=== PATIENT | male | born 1955 | race American Indian/Alaskan Native ===

== ENCOUNTER 2022-06-19 06:27 | Inpatient (IN) | payer MEDICARE ==
--- NOTE | 2022-06-19 06:46 | Emergency Department Report ---
ED Neuro Deficit HPI - General Stated Complaint: LEFT ARM TRIMMERS Time Seen by Provider: 06/19/22 06:33 Source: patient, family, EMS Mode of arrival: Stretcher Limitations: Physical Limitation - History of Present Illness Initial Comments: This is a 66-year-old male with history of diabetes, end-stage renal disease, (dialysis dependent), hypertension, GI bleed, and stroke (3 years ago) who presents to the emergency department with left arm tremors, which he reported started 2 days ago. His family believes that he woke up with the symptoms, however, the patient is fully alert and oriented. Patient denies headache, any new focal weakness, chest pain, nor shortness of breath. Patient reports similar symptoms 3 years ago when he had a stroke. Patient denies any known a lleviating or aggravating factors. -: Sudden History of same: Yes - Related Data Home Medications: Home Medications Medication Instructions Recorded Confirmed Last Taken Metoprolol Xl 25 mg PO DAILY 04/06/16 04/06/16 Unknown Multivitamin/Iron/Folic Acid 1 PO DAILY 04/06/16 Unknown Pantoprazole [Protonix TAB] 40 mg PO QDAY 04/06/16 04/06/16 Unknown Sennosides [Senokot] 2 PO HS PRN 04/06/16 Unknown polyethylene glycoL 3350 [Miralax 17 gm PO DAILY PRN 04/06/16 04/06/16 Unknown 3350] Previous Rx's Medication Instructions Recorded Last Taken Type Acetaminophen [Acetaminophen TAB] 325 mg PO Q4H PRN #1 tablet 04/14/16 Unknown Rx Aspirin 81 mg PO QDAY #1 tablet 04/14/16 Unknown Rx Cinacalcet [Sensipar] 90 mg PO DAILY #1 tablet 04/14/16 Unknown Rx Lanthanum Carbonate [Fosrenol] 500 mg PO TIDWM #1 tab.chew 04/14/16 Unknown Rx Sevelamer Carbonate [Renvela] 800 mg PO AC #1 tablet 04/14/16 Unknown Rx oxyCODONE [roxiCODONE] 10 mg PO Q4HR PRN #1 tablet 04/14/16 Unknown Rx Allergies/Adverse Reactions: Allergies Allergy/AdvReac Type Severity Reaction Status Date / Time pollen extracts AdvReac Shortness Verified 04/06/16 19:37 of Breath ED Review of Systems ROS: Stated complaint: LEFT ARM TRIMMERS Other details as noted in HPI Constitutional: denies: chills, fever Eyes: denies: eye pain, eye discharge, vision change ENT: denies: ear pain, throat pain Respiratory: denies: cough, shortness of breath, wheezing Cardiovascular: denies: chest pain, palpitations Endocrine: no symptoms reported Gastrointestinal: denies: abdominal pain, nausea, diarrhea Genitourinary: denies: urgency, dysuria Musculoskeletal: denies: back pain, joint swelling, arthralgia Skin: denies: rash, lesions Neurological: other. denies: headache, weakness (Left upper extremity focal tremor, which is constant), numbness, paresthesias Psychiatric: denies: anxiety, depression Hematological/Lymphatic: denies: easy bleeding, easy bruising ED Past Medical Hx - Past Medical History Hx Hypertension: Yes Hx Congestive Heart Failure: No Hx Diabetes: Yes (PT AND BROTHER WITH DM) Hx Renal Disease: Yes Hx Asthma: No - Social History Smoking Status: Never Smoker - Medications Home Medications: Home Medications Medication Instructions Recorded Confirmed Last Taken Type Metoprolol Xl 25 mg PO DAILY 04/06/16 04/06/16 Unknown History Multivitamin/Iron/Folic Acid 1 PO DAILY 04/06/16 Unknown History Pantoprazole [Protonix TAB] 40 mg PO QDAY 04/06/16 04/06/16 Unknown History Sennosides [Senokot] 2 PO HS PRN 04/06/16 Unknown History polyethylene glycoL 3350 [Miralax 17 gm PO DAILY PRN 04/06/16 04/06/16 Unknown History 3350] Acetaminophen [Acetaminophen TAB] 325 mg PO Q4H PRN #1 tablet 04/14/16 Unknown Rx Aspirin 81 mg PO QDAY #1 tablet 04/14/16 Unknown Rx Cinacalcet [Sensipar] 90 mg PO DAILY #1 tablet 04/14/16 Unknown Rx Lanthanum Carbonate [Fosrenol] 500 mg PO TIDWM #1 tab.chew 04/14/16 Unknown Rx Sevelamer Carbonate [Renvela] 800 mg PO AC #1 tablet 04/14/16 Unknown Rx oxyCODONE [roxiCODONE] 10 mg PO Q4HR PRN #1 tablet 04/14/16 Unknown Rx ED Neuro Physical Exam - General General appearance: alert, in no apparent distress Suspected Stroke: Yes - Head Head exam: Present: atraumatic, normocephalic - Eye Eye exam: Present: normal appearance, PERRL, EOMI - Neck Neck exam: Present: normal inspection, full ROM - Respiratory Respiratory exam: Present: normal lung sounds bilaterally. Absent: respiratory distress, wheezes, rales, rhonchi - Cardiovascular Cardiovascular Exam: Present: regular rate, irregular rhythm. Absent: systolic murmur, diastolic murmur, rubs, gallop - GI/Abdominal GI/Abdominal exam: Present: soft, distended, normal bowel sounds. 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 Left upper extremity tremors which is constant). Absent: normal gait, abnormal gait, motor sensory deficit, reflexes normal - NIHSS Assessment Interval: Baseline 1a. Level of Consciousness: alert/keenly responsive 1b. LOC Questions: answers both correctly 1c. LOC Commands: performs tasks correctly 2. Best Gaze: normal 3. Visual: no visual loss 4. Facial Palsy: normal symmetrical movement 5b. Motor Arm Right: no drift 5a. Motor Arm Left: no drift (tremors) 6a. Motor Leg Left: no movement 6b. Motor Leg Right: no movement 7. Limb Ataxia: present 1 limb 8. Sensory: normal 9. Best Language: no aphasia 10. Dysarthria: normal 11. Extinction/Inattention: no abnormality Total Score: 9 Stroke Severity: Moderate Stroke - Psychiatric Psychiatric exam: Present: normal affect, normal mood - Skin Skin exam: Present: warm, dry, intact, normal color. Absent: rash ED Course Vital Signs 06/19/22 06/19/22 06/19/22 06:29 08:04 11:00 Temperature 98.4 F 97.6 F Pulse Rate 86 82 65 Respiratory 18 18 18 Rate Blood Pressure 130/60 Blood Pressure 112/54 130/75 [Right] O2 Sat by Pulse 100 97 96 Oximetry 06/19/22 12:48 Temperature Pulse Rate 75 Respiratory 17 Rate Blood Pressure Blood Pressure 126/45 [Right] O2 Sat by Pulse 100 Oximetry - Reevaluation(s) Reevaluation #1: 06/19/22 07:43 This is a 66-year-old male who has history of stroke which has left him with left-sided tremors, intermittently. Patient has been having worsening left upper extremity tremors for the last 2 days. The seizure-like presentation and the fact that it has been 2 days makes him not a tPA candidate, nor a interventional candidate. I spoke with neurology who agreed that the patient was not a tPA candidate, but recommended an MRI and possibly dialysis if there were metabolic derangements. He does not believe benzodiazepines will help with the symptoms. Reevaluation #2: 06/19/22 08:06 Patient reports that he does take a medicine that begins with a "K", which he believes is Keppra for seizures. Reevaluation #3: 06/19/22 13:07 I spoke with [facility] (Dr. Herring) who gave permission for the patient to be admitted here for further work-up. She could not find the patient's family members phone number, but was able to confirm that the patient had been on Keppra some years ago, but that has been discontinued. Patient's last troponin went in the [facility] system was not as high as it is, here today. I also spoke to the patient's Maria De Jesus who can be reached at [phone]. She understands the diagnosis, reports that the patient has not been diagnosed with dementia and, but does have waxing and waning confusion. - Lab Data Result diagrams: 06/19/22 07:18 06/19/22 07:18 Lab Results 06/19/22 06/19/22 06/19/22 Range/Units 07:18 07:18 07:18 WBC 3.9 L (4.5-11.0) K/mm3 RBC 3.93 (3.65-5.03) M/mm3 Hgb 11.5 L (11.8-15.2) gm/dl Hct 35.4 L (35.5-45.6) % MCV 90 (84-94) fl MCH 29 (28-32) pg MCHC 32 (32-34) % RDW 17.8 H (13.2-15.2) % Plt Count 172 (140-440) K/mm3 Lymph % (Auto) 18.1 (13.4-35.0) % [place] % (Auto) 7.4 H (0.0-7.3) % Eos % (Auto) 2.3 (0.0-4.3) % Baso % (Auto) 0.7 (0.0-1.8) % Lymph # (Auto) 0.7 L (1.2-5.4) K/mm3 [place] # (Auto) 0.3 (0.0-0.8) K/mm3 Eos # (Auto) 0.1 (0.0-0.4) K/mm3 Baso # (Auto) 0.0 (0.0-0.1) K/mm3 Seg Neutrophils % 71.5 H (40.0-70.0) % Seg Neutrophils # 2.8 (1.8-7.7) K/mm3 PT 23.5 H (12.2-14.9) Sec. INR 1.79 H (0.87-1.13) APTT 44.9 H (24.2-36.6) Sec. Thrombin Time 19.2 (15.1-19.6) Sec. Sodium (137-145) mmol/L Potassium (3.6-5.0) mmol/L Chloride (98-107) mmol/L Carbon Dioxide (22-30) mmol/L Anion Gap mmol/L BUN (9-20) mg/dL Creatinine (0.8-1.3) mg/dL Estimated GFR ml/min BUN/Creatinine Ratio % Glucose (75-100) mg/dL Calcium (8.4-10.2) mg/dL Total Bilirubin (0.1-1.2) mg/dL AST (5-40) units/L ALT (7-56) units/L Alkaline Phosphatase (35-129) units/L Total Creatine Kinase 50 L (55-170) units/L CK-MB (CK-2) 4.3 H (0.0-4.0) ng/mL CK-MB (CK-2) Rel Index 8.6 H (0-4) Troponin T 0.565 H* (0.00-0.029) ng/mL Total Protein (6.3-8.2) g/dL Albumin (3.9-5) g/dL Albumin/Globulin Ratio % Triglycerides 86 (2-149) mg/dL Cholesterol 82 (50-199) mg/dL LDL Cholesterol Direct 31 L (50-130) mg/dL HDL Cholesterol 28 L (40-59) mg/dL Cholesterol/HDL Ratio 2.92 % // Range/Units 07:18 WBC (4.5-11.0) K/mm3 RBC (3.65-5.03) M/mm3 Hgb (11.8-15.2) gm/dl Hct (35.5-45.6) % MCV (84-94) fl MCH (28-32) pg MCHC (32-34) % RDW (13.2-15.2) % Plt Count (140-440) K/mm3 Lymph % (Auto) (13.4-35.0) % [place] % (Auto) (0.0-7.3) % Eos % (Auto) (0.0-4.3) % Baso % (Auto) (0.0-1.8) % Lymph # (Auto) (1.2-5.4) K/mm3 [place] # (Auto) (0.0-0.8) K/mm3 Eos # (Auto) (0.0-0.4) K/mm3 Baso # (Auto) (0.0-0.1) K/mm3 Seg Neutrophils % (40.0-70.0) % Seg Neutrophils # (1.8-7.7) K/mm3 PT (12.2-14.9) Sec. INR (0.87-1.13) APTT (24.2-36.6) Sec. Thrombin Time (15.1-19.6) Sec. Sodium 136 L (137-145) mmol/L Potassium 3.8 (3.6-5.0) mmol/L Chloride 93.6 L (98-107) mmol/L Carbon Dioxide 29 (22-30) mmol/L Anion Gap 17 mmol/L BUN 23 H (9-20) mg/dL Creatinine 7.8 H (0.8-1.3) mg/dL Estimated GFR 8 ml/min BUN/Creatinine Ratio 3 % Glucose 83 (75-100) mg/dL Calcium 8.4 (8.4-10.2) mg/dL Total Bilirubin 1.00 (0.1-1.2) mg/dL AST 19 (5-40) units/L ALT < 5 L (7-56) units/L Alkaline Phosphatase 134 H (35-129) units/L Total Creatine Kinase (55-170) units/L CK-MB (CK-2) (0.0-4.0) ng/mL CK-MB (CK-2) Rel Index (0-4) Troponin T (0.00-0.029) ng/mL Total Protein 6.2 L (6.3-8.2) g/dL Albumin 2.6 L (3.9-5) g/dL Albumin/Globulin Ratio 0.7 % Triglycerides (2-149) mg/dL Cholesterol (50-199) mg/dL LDL Cholesterol Direct (50-130) mg/dL HDL Cholesterol (40-59) mg/dL Cholesterol/HDL Ratio % - Differential Diagnosis Stroke, TIA, seizure, intracranial hemorrhage, malignancy - Thrombolytic Inclusion/Exclusion Thrombolytic Exclusion Criteria: Symptom Onset > 3 Hours Thrombolytic Contraindications: Seizure at Onset Critical care attestation.: If time is entered above; I have spent that time in minutes in the direct care of this critically ill patient, excluding procedure time. ED Disposition Clinical Impression: Tremor observed on examination, Stroke determined by clinical assessment Disposition: 09 ADMITTED INPATIENT Is pt being admited?: Yes Condition: Fair
--- NOTE | 2022-06-19 06:56 | Emergency Department Report ---
Blank Doc - Documentation Documentation: [facility] Consult Note # Demographics Consult Type: Acute Stroke Level 1 (0-4.5 hrs) Patient Location: Emergency Room First Name: Demetrice Last Name: Magui Date of : 1955 Age: 66 Gender: Male Facility: [facility] Time of Initial Page ( Time): 06/19/2022, 06:35 Time of Return Call ( Time): 06/19/2022, 06:35 # HPI History: 66 yo man hx of prior stroke , seizure disorder on keppra with residual left arm weakness, bilateral lower ext amputee woke today with new onset arm tremors, patient notes that the symptoms have been going on for 2 days. # Scores Time of exam and NIHSS ( Time): 06/19/2022, 06:52 Level of Consciousness 1a: [0] = Alert; keenly responsive LOC Questions 1b: [0] = Answers both questions correctly LOC Commands 1c: [0] = Performs both tasks correctly Best Gaze 2: [0] = Normal Visual 3: [0] = No visual loss Facial Palsy 4: [0] = Normal symmetrical movements Motor Arm Left 5a: [1] = Drift Motor Arm Right 5b: [0] = No drift Motor Leg Left 6a: [0] UN = Amputation or joint fusion Motor Leg Right 6b: [0] UN = Amputation or joint fusion Limb Ataxia 7: [0] = Absent Sensory 8: [0] = Normal Best Language 9: [0] = No aphasia Dysarthria 10: [0] = Normal Extinction and Inattention 11: [0] = No abnormality NIHSS Total: 1 # Exam Additional Neurologic Exam: tremor, myoclonic appearing drops # Data Head CT: no bleed chronic appearing strokes noted # Assessment Impression: left arm tremor, possible negative (drop) myoclonus, which may be suggestive of metabolic derangement. new stroke is also possible. low suspicion of seizures at this time. # Plan Thrombolytic/Intervention: NOT IV Thrombolysis or IA Intervention candidate Thrombolytic Exclusion: > 4.5 hours Intraarterial Exclusion: cta read is pending Target Blood Pressure: SBP < 180 Labs: CBC comprehensive metabolic panel lipid panel troponin TSH urine drug screen ua DVT Prophylaxis: heparin 5000 units subcutaneously q 12 hours Other: consult on-site neurology service for full work-up and evaluation recommendations If patient has any neurological deterioration please call me back immediately I have discussed my recommendations with the referring provider Additional Recommendations: metabolic, infectious work up patient may need dialysis today MRI brain wo contrast Disposition: admit # Logistics Telemedicine: Interactive 2 way audio and visual telecommunication technology was utilized during this visit
--- NOTE | 2022-06-19 07:03 | Cat Scan Report ---
CT HEAD WITHOUT CONTRAST INDICATION / CLINICAL INFORMATION: CODE STROKE, LEFT SIDE WEAKNESS, [id number], [id number] . TECHNIQUE: All CT scans at this location are performed using CT dose reduction for ALARA by means of automated exposure control. COMPARISON: None available. FINDINGS: BRAIN PARENCHYMA: Large area of encephalomalacia involving the right frontoparietal region, compatibl e with remote infarct. Additional area of encephalomalacia involving the right parieto-occipital carly on. No definite recent infarct. No acute intracranial hemorrhage. No mass effect or midline shift. Ch ronic small vessel ischemic changes. VENTRICULAR SYSTEM/EXTRA-AXIAL SPACES: Age-related cerebral atrophy. No extra-axial fluid collection. ORBITS: Normal as visualized. SKELETAL SYSTEM/SOFT TISSUES: Normal bones and soft tissues. PARANASAL SINUSES/MASTOID AIR CELLS: Complete opacification of the left maxillary sinus with mucosal thickening of the ethmoid air cells and left frontal sinus. ADDITIONAL FINDINGS: None. IMPRESSION: 1. No evidence of acute intracranial abnormality. 2. Remote infarcts of the right cerebral hemisphere. 3. Left maxillary sinusitis. CODE STROKE Time of Communication (CERTIFIED PROFESSIONAL ERGONOMIST/CDT): 06/19/2022 5:58 AM. Licensed Practitioner Receiving Report: LUPILLO MULLIGAN MD Signer Name: Dave Muhammad MD Signed: 06/19/2022 6:58 AM Workstation Name: [id number]
[2022-06-19 07:43] LABS: Basophils % (Auto) 0.7 % (0.0-1.8); Eosinophils # (Auto) 0.1 K/mm3 (0.0-0.4); Eosinophils % (Auto) 2.3 % (0.0-4.3); Hematocrit 35.4 % (35.5-45.6); Hemoglobin 11.5 gm/dl (11.8-15.2); Lymphocytes # (Auto) 0.7 K/mm3 (1.2-5.4); Lymphocytes % (Auto) 18.1 % (13.4-35.0); Mean Corpuscular HGB Conc 32 % (32-34); Mean Corpuscular Volume 90 fl (84-94); Monocytes # (Auto) 0.3 K/mm3 (0.0-0.8); Monocytes % (Auto) 7.4 % (0.0-7.3); Platelet Count 172 K/mm3 (140-440); Red Blood Count 3.93 M/mm3 (3.65-5.03); Red Cell Distribution Width 17.8 % (13.2-15.2)
[2022-06-19] MEDS ORDERED: diazePAM 5 MG TAB PO ONE (08:04)
[2022-06-19 08:06] LABS: Creatine Kinase MB 4.3 ng/mL (0.0-4.0)
[2022-06-19 08:07] LABS: Albumin 2.6 g/dL (3.9-5); Blood Urea Nitrogen 23 mg/dL (9-20); Calcium 8.4 mg/dL (8.4-10.2); Hemolysis Index 1
[2022-06-19 08:17] LABS: Alanine Aminotransferase < 5 units/L (7-56); BUN/Creatinine Ratio 3
[2022-06-19 08:29] LABS: Chol/HDL Ratio 2.92 %
[2022-06-19 08:49] LABS: INR 1.79 (0.87-1.13)
[2022-06-19 09:07] LABS: Partial Thromboplastin Time 44.9 Sec. (24.2-36.6); Thrombin Time 19.2 Sec. (15.1-19.6)
[2022-06-19] MEDS ORDERED: MORPHINE 2 MG/1 ML INJ IV ONE (13:20)
--- NOTE | 2022-06-19 16:52 | History and Physical Report ---
History of Present Illness Date of examination: 06/19/22 Date of admission: 06/19/2022 Chief complaint: Black pigmentation of both hands for more than 1 month. History of present illness: Patient is a poor historian. This is a 66-year-old male with history of diabetes, end-stage renal disease, (dialysis dependent), hypertension, GI bleed, and stroke (3 years ago) who presents to the emergency department with left arm tremors, which he reported started 2 days ago. Patient also complains of darkening of both hands for about 2 to 3 months. Patient was admitted to [place] recently and amputation of left index finger performed. Patient was not letting me open the bandage--hence I could not visualize the left hand properly. - Past Medical History --Hypertension: Yes --Diabetes: Yes (PT AND BROTHER WITH DM) --Renal Disease: Yes past surgical history -- bilateral below-knee amputation, -- left hand index finger amputation, --left upper extremity AV fistula - Social History --Smoking Status: Never Smoker - Medications Home Medications: Home Medications Medication Instructions Recorded Confirmed Last Taken Type Metoprolol Xl 25 mg PO DAILY 04/06/16 04/06/16 Unknown History Multivitamin/Iron/Folic Acid 1 PO DAILY 04/06/16 Unknown History Pantoprazole [Protonix TAB] 40 mg PO QDAY 04/06/16 04/06/16 Unknown History Sennosides [Senokot] 2 PO HS PRN 04/06/16 Unknown History polyethylene glycoL 3350 [Miralax 17 gm PO DAILY PRN 04/06/16 04/06/16 Unknown History 3350] Acetaminophen [Acetaminophen TAB] 325 mg PO Q4H PRN #1 tablet 04/14/16 Unknown Rx Aspirin 81 mg PO QDAY #1 tablet 04/14/16 Unknown Rx Cinacalcet [Sensipar] 90 mg PO DAILY #1 tablet 04/14/16 Unknown Rx Lanthanum Carbonate [Fosrenol] 500 mg PO TIDWM #1 tab.chew 04/14/16 Unknown Rx Sevelamer Carbonate [Renvela] 800 mg PO AC #1 tablet 04/14/16 Unknown Rx oxyCODONE [roxiCODONE] 10 mg PO Q4HR PRN #1 tablet 04/14/16 Unknown Rx Review of Systems ROS: Stated complaint: Darkening of both forearms and hands for 2 to 3 months Other details as noted in HPI Constitutional: denies: chills, fever Eyes: denies: eye pain, eye discharge, vision change ENT: denies: ear pain, throat pain Respiratory: denies: cough, shortness of breath, wheezing Cardiovascular: denies: chest pain, palpitations Endocrine: no symptoms reported Gastrointestinal: denies: abdominal pain, nausea, diarrhea Genitourinary: denies: urgency, dysuria Musculoskeletal: denies: back pain, joint swelling, arthralgia Skin: denies: rash, lesions Neurological: other. denies: headache, weakness (Left upper extremity focal tremor, which is constant), numbness, paresthesias Psychiatric: denies: anxiety, depression Hematological/Lymphatic: denies: easy bleeding, easy bruising Medications and Allergies Allergies Allergy/AdvReac Type Severity Reaction Status Date / Time pollen extracts AdvReac Shortness Verified 04/06/16 19:37 of Breath Home Medications Medication Instructions Recorded Confirmed Last Taken Type Metoprolol Xl 25 mg PO DAILY 04/06/16 04/06/16 Unknown History Multivitamin/Iron/Folic Acid 1 PO DAILY 04/06/16 Unknown History Pantoprazole [Protonix TAB] 40 mg PO QDAY 04/06/16 04/06/16 Unknown History Sennosides [Senokot] 2 PO HS PRN 04/06/16 Unknown History polyethylene glycoL 3350 [Miralax 17 gm PO DAILY PRN 04/06/16 04/06/16 Unknown History 3350] Acetaminophen [Acetaminophen TAB] 325 mg PO Q4H PRN #1 tablet 04/14/16 Unknown Rx Aspirin 81 mg PO QDAY #1 tablet 04/14/16 Unknown Rx Cinacalcet [Sensipar] 90 mg PO DAILY #1 tablet 04/14/16 Unknown Rx Lanthanum Carbonate [Fosrenol] 500 mg PO TIDWM #1 tab.chew 04/14/16 Unknown Rx Sevelamer Carbonate [Renvela] 800 mg PO AC #1 tablet 04/14/16 Unknown Rx oxyCODONE [roxiCODONE] 10 mg PO Q4HR PRN #1 tablet 04/14/16 Unknown Rx Exam - Constitutional Vitals: Temp Pulse Resp BP Pulse Ox 97.6 F 76 15 96/43 97 06/19/22 08:04 06/19/22 16:18 08/08/22 16:18 06/19/22 16:18 06/19/22 16:18 General appearance: Present: mild distress, well-nourished - EENT Eyes: Present: PERRL ENT: hearing intact, clear oral mucosa - Neck Neck: Present: supple, normal ROM - Respiratory Respiratory effort: normal Respiratory: bilateral: CTA - Cardiovascular Heart rate: 78 Rhythm: regular Heart Sounds: Present: S1 & S2. Absent: rub, click - Extremities Extremities: pulses symmetrical, No edema, abnormal (Gangrenous appearance of both forearms and both hands) Peripheral Pulses: within normal limits - Abdominal General gastrointestinal: Present: soft, non-tender, non-distended, normal bowel sounds Male genitourinary: Present: normal - Integumentary Integumentary: Present: clear, warm, dry - Musculoskeletal Musculoskeletal: gait normal, strength equal bilaterally - Psychiatric Psychiatric: appropriate mood/affect, intact judgment & insight - Neurologic Neurologic: CNII-XII intact, moves all extremities - Allied Health Allied health notes reviewed: nursing, case management HEART Score - HEART Score Troponin: Troponin T 0.565 ng/mL (0.00-0.029) H* 06/19/22 07:18 Results - Labs CBC & Chem 7: 06/19/22 07:18 06/19/22 07:18 Labs: Laboratory Last Values WBC 3.9 K/mm3 (4.5-11.0) L 06/19/22 07:18 RBC 3.93 M/mm3 (3.65-5.03) 06/19/22 07:18 Hgb 11.5 gm/dl (11.8-15.2) L 06/19/22 07:18 Hct 35.4 % (35.5-45.6) L 06/19/22 07:18 MCV 90 fl (84-94) 06/19/22 07:18 MCH 29 pg (28-32) 06/19/22 07:18 MCHC 32 % (32-34) 06/19/22 07:18 RDW 17.8 % (13.2-15.2) H 06/19/22 07:18 Plt Count 172 K/mm3 (140-440) 06/19/22 07:18 Lymph % (Auto) 18.1 % (13.4-35.0) 06/19/22 07:18 [place] % (Auto) 7.4 % (0.0-7.3) H 06/19/22 07:18 Eos % (Auto) 2.3 % (0.0-4.3) 06/19/22 07:18 Baso % (Auto) 0.7 % (0.0-1.8) 06/19/22 07:18 Lymph # (Auto) 0.7 K/mm3 (1.2-5.4) L 06/19/22 07:18 [place] # (Auto) 0.3 K/mm3 (0.0-0.8) 06/19/22 07:18 Eos # (Auto) 0.1 K/mm3 (0.0-0.4) 06/19/22 07:18 Baso # (Auto) 0.0 K/mm3 (0.0-0.1) 06/19/22 07:18 Seg Neutrophils % 71.5 % (40.0-70.0) H 06/19/22 07:18 Seg Neutrophils # 2.8 K/mm3 (1.8-7.7) 06/19/22 07:18 PT 23.5 Sec. (12.2-14.9) H 06/19/22 07:18 INR 1.79 (0.87-1.13) H 06/19/22 07:18 APTT 44.9 Sec. (24.2-36.6) H 06/19/22 07:18 Thrombin Time 19.2 Sec. (15.1-19.6) 06/19/22 07:18 Sodium 136 mmol/L (137-145) L 06/19/22 07:18 Potassium 3.8 mmol/L (3.6-5.0) 06/19/22 07:18 Chloride 93.6 mmol/L (98-107) L 06/19/22 07:18 Carbon Dioxide 29 mmol/L (22-30) 06/19/22 07:18 Anion Gap 17 mmol/L 06/19/22 07:18 BUN 23 mg/dL (9-20) H 06/19/22 07:18 Creatinine 7.8 mg/dL (0.8-1.3) H 06/19/22 07:18 Estimated GFR 8 ml/min 06/19/22 07:18 BUN/Creatinine Ratio 3 % 06/19/22 07:18 Glucose 83 mg/dL (75-100) 06/19/22 07:18 POC Glucose 61 mg/dL (70-105) L 06/19/22 13:14 Calcium 8.4 mg/dL (8.4-10.2) 06/19/22 07:18 Total Bilirubin 1.00 mg/dL (0.1-1.2) 06/19/22 07:18 AST 19 units/L (5-40) 06/19/22 07:18 ALT < 5 units/L (7-56) L 06/19/22 07:18 Alkaline Phosphatase 134 units/L (35-129) H 06/19/22 07:18 Total Creatine Kinase 50 units/L (55-170) L 06/19/22 07:18 CK-MB (CK-2) 4.3 ng/mL (0.0-4.0) H 06/19/22 07:18 CK-MB (CK-2) Rel Index 8.6 (0-4) H 06/19/22 07:18 Troponin T 0.565 ng/mL (0.00-0.029) H* 06/19/22 07:18 Total Protein 6.2 g/dL (6.3-8.2) L 06/19/22 07:18 Albumin 2.6 g/dL (3.9-5) L 06/19/22 07:18 Albumin/Globulin Ratio 0.7 % 06/19/22 07:18 Triglycerides 86 mg/dL (2-149) 06/19/22 07:18 Cholesterol 82 mg/dL (50-199) 06/19/22 07:18 LDL Cholesterol Direct 31 mg/dL (50-130) L 06/19/22 07:18 HDL Cholesterol 28 mg/dL (40-59) L 06/19/22 07:18 Cholesterol/HDL Ratio 2.92 % 06/19/22 07:18 Short CBC 06/19/22 Range/Units 07:18 WBC 3.9 L (4.5-11.0) K/mm3 Hgb 11.5 L (11.8-15.2) gm/dl Hct 35.4 L (35.5-45.6) % Plt Count 172 (140-440) K/mm3 BMP 06/19/22 07:18 Sodium 136 L Potassium 3.8 Chloride 93.6 L Carbon Dioxide 29 BUN 23 H Creatinine 7.8 H Glucose 83 Calcium 8.4 Cardiac Enzymes 06/19/22 Range/Units 07:18 Total Creatine Kinase 50 L (55-170) units/L CK-MB (CK-2) 4.3 H (0.0-4.0) ng/mL Troponin T 0.565 H* (0.00-0.029) ng/mL Liver Function 06/19/22 Range/Units 07:18 Total Bilirubin 1.00 (0.1-1.2) mg/dL AST 19 (5-40) units/L ALT < 5 L (7-56) units/L Alkaline Phosphatase 134 H (35-129) units/L Albumin 2.6 L (3.9-5) g/dL - Imaging and Cardiology CT Scan - head: report reviewed (No acute findings) Assessment and Plan Advance Directives: Yes (Full code) VTE prophylaxis?: Chemical Plan of care discussed with patient/family: Yes - Patient Problems (1) Gangrene Current Visit: No Status: Acute Plan to address problem: Patient has gangrene of both forearms and hands Vascular surgery consult Patient is thinking about hospice IV antibiotics initiated (2) End stage renal disease on dialysis Current Visit: Yes Status: Chronic Plan to address problem: Continue hemodialysis as per schedule Nephrology consulted (3) Hypertension Current Visit: Yes Status: Chronic Qualifiers: Hypertension type: primary hypertension Qualified Code(s): I10 - Essential (primary) hypertension Plan to address problem: Continue antihypertensives and adjust medications as necessary (4) T2DM (type 2 diabetes mellitus) Current Visit: Yes Status: Chronic Qualifiers: 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 Plan to address problem: Coverage and check A1c (5) Below knee amputation status Current Visit: No Status: Chronic Plan to address problem: Bilateral below-knee amputation Supportive care (6) Hyponatremia Current Visit: Yes Status: Acute Plan to address problem: Mild Should correct with increased ultrafiltration (7) Elevated troponin Current Visit: Yes Status: Chronic Plan to address problem: Troponin leak Repeat troponin level (8) DVT prophylaxis Current Visit: Yes Status: Acute Plan to address problem: On heparin and GI prophylaxis (9) Advance care planning Current Visit: Yes Status: Acute Plan to address problem: Disease education conducted, care plan discussed, patient diagnosis discussed then. Prognosis discussed. Patient acknowledges understanding of care plan. +30 minutes. Patient is thinking about hospice.
[2022-06-19] MEDS ORDERED: oxyCODONE 5 MG TAB PO PRN (17:00)
[2022-06-19] MEDS ORDERED: POLYETHYLENE GLYCOL 3350 17 GM POWDER PO PRN (17:00)
[2022-06-19] MEDS ORDERED: ACETAMINOPHEN 325 MG TAB PO PRN ×2 (17:00→17:02)
[2022-06-19] MEDS ORDERED: ONDANSETRON 4 MG/2 ML INJ IV PRN (17:02)
[2022-06-19] MEDS ORDERED: oxyCODONE /ACETAMINOPHEN 5-325MG TAB PO PRN (17:02)
[2022-06-19] MEDS ORDERED: METOPROLOL 25 MG PO SCH (17:15)
[2022-06-19] MEDS: LANTHANUM CARBONATE 500 MG TAB PO SCH (18:17)
[2022-06-19] MEDS: METOPROLOL SUCCINATE XL 25 MG TAB PO SCH (18:17)
[2022-06-19] MEDS: CINACALCET 30 MG TAB PO SCH (18:17)
[2022-06-19] MEDS: MORPHINE 2 MG/1 ML INJ IV PRN (21:04)
[2022-06-20 07:12] LABS: Basophils # (Auto) 0.1 K/mm3 (0.0-0.1); Basophils % (Auto) 2.2 % (0.0-1.8); Eosinophils # (Auto) 0.1 K/mm3 (0.0-0.4); Eosinophils % (Auto) 3.5 % (0.0-4.3); Hematocrit 36.8 % (35.5-45.6); Lymphocytes # (Auto) 0.9 K/mm3 (1.2-5.4); Lymphocytes % (Auto) 24.1 % (13.4-35.0); Mean Corpuscular HGB Conc 33 % (32-34); Mean Corpuscular Volume 90 fl (84-94); Monocytes # (Auto) 0.3 K/mm3 (0.0-0.8); Monocytes % (Auto) 7.6 % (0.0-7.3); Platelet Count 171 K/mm3 (140-440); Red Blood Count 4.08 M/mm3 (3.65-5.03); Red Cell Distribution Width 18.3 % (13.2-15.2)
[2022-06-20 07:35] LABS: Albumin 2.6 g/dL (3.9-5); Blood Urea Nitrogen 28 mg/dL (9-20); Calcium 8.1 mg/dL (8.4-10.2); Hemolysis Index 3
[2022-06-20 07:39] LABS: Hepatitis B Surface Antigen Non-Reactive (Negative); Hepatitis C Virus Antibody Non-Reactive (NonReactive)
[2022-06-20 07:42] LABS: Alanine Aminotransferase < 5 units/L (7-56); BUN/Creatinine Ratio 3
[2022-06-20] MEDS ORDERED: VANCOMYCIN PHARMACY TO DOSE IV SCH (08:00)
[2022-06-20] MEDS ORDERED: AMPICILLIN/SULBACTA 1.5GM/50ML 1.5 GM/50 ML BAG IV SCH (08:00)
[2022-06-20] MEDS: INSULIN LISPRO 100 UNIT/ML SUB-Q SCH ×4 (08:03→22:29)
[2022-06-20] MEDS ORDERED: VANCOMYCIN 1,500 MG in SODIUM CHLORIDE 0.9% 500 ML 500 ML IV ONE (08:30)
--- NOTE | 2022-06-20 08:50 | Consultation ---
History of Present Illness - Reason for Consult Consult date: 06/20/22 b/l hand gangrene Requesting physician: MERRILL TORRES - History of Present Illness The patient is a 66-year-old male with diabetes, ESRD on HD, hypertension, GI bleed, CVA, peripheral vascular disease, prior bilateral lower extremity BKA, recent left hand index finger amputation came to the hospital with complaints of pain in his right hand fingers. They have been getting dark and painful for the last 1 to 2 months. He has been hospitalized due to concerns for gangrenous changes. Otherwise afebrile. Labs without leukocytosis. ID was consulted for antibiotic management. Review of Systems: General: no fevers,chills or rigors HEENT: no new visual disturbance Respiratory: No cough, sputum, hemoptysis or shortness of breath Cardiovascular: No chest pain, syncope Gastrointestinal: No nausea, vomiting or diarrhea Genitourinary: No dysuria or hematuria Musculoskeletal: No new or worsening neck pain or back pain. Painful hands. Neurologic: No headaches, seizures Hematologic: No easy bruising or bleeding Endocrine: No night sweats or acute weight loss Skin: negative for rash, jaundice Psychiatric: No suicidal or homicidal ideation Medications and Allergies Allergies Allergy/AdvReac Type Severity Reaction Status Date / Time pollen extracts AdvReac Shortness Verified 04/06/16 19:37 of Breath Home Medications Medication Instructions Recorded Confirmed Last Taken Type Metoprolol Xl 25 mg PO DAILY 04/06/16 04/06/16 Unknown History Multivitamin/Iron/Folic Acid 1 PO DAILY 04/06/16 Unknown History Pantoprazole [Protonix TAB] 40 mg PO QDAY 04/06/16 04/06/16 Unknown History Sennosides [Senokot] 2 PO HS PRN 04/06/16 Unknown History polyethylene glycoL 3350 [Miralax 17 gm PO DAILY PRN 04/06/16 04/06/16 Unknown History 3350] Acetaminophen [Acetaminophen TAB] 325 mg PO Q4H PRN #1 tablet 04/14/16 Unknown Rx Aspirin 81 mg PO QDAY #1 tablet 04/14/16 Unknown Rx Cinacalcet [Sensipar] 90 mg PO DAILY #1 tablet 04/14/16 Unknown Rx Lanthanum Carbonate [Fosrenol] 500 mg PO TIDWM #1 tab.chew 04/14/16 Unknown Rx Sevelamer Carbonate [Renvela] 800 mg PO AC #1 tablet 04/14/16 Unknown Rx oxyCODONE [roxiCODONE] 10 mg PO Q4HR PRN #1 tablet 04/14/16 Unknown Rx Active Meds: Active Medications Acetaminophen (Acetaminophen 325 Mg Tab) 650 mg PO Q4H PRN PRN Reason: Pain MILD(1-3)/Fever >100.5/[place] Cinacalcet (Cinacalcet 30 Mg Tab) 90 mg PO DAILY [facility] Last Admin: 06/19/22 18:17 Dose: 90 mg Ampicillin Sodium/Sulbactam Sodium (Unasyn/Ns 3 Gm/100 Ml) 3 gm in 100 mls @ 200 mls/hr IV QPM [facility] Vancomycin HCl 1,500 mg/ (Sodium Chloride) 530 mls @ 333.333 mls/hr IV ONCE ONE Stop: 06/20/22 10:05 Insulin Human Lispro (Insulin Lispro 100 Unit/Ml) 0 unit SUB-Q ACHS [facility]; Protocol Lanthanum Carbonate (Lanthanum Carbonate 500 Mg Tab) 500 mg PO TIDWM [facility] Last Admin: 06/19/22 18:17 Dose: 500 mg Metoprolol Succinate (Metoprolol Succinate Xl 25 Mg Tab) 25 mg PO QDAY [facility] Last Admin: 06/19/22 18:17 Dose: 25 mg Morphine Sulfate (Morphine 2 Mg/1 Ml Inj) 2 mg IV Q4H PRN PRN Reason: Pain, Moderate (4-6) Last Admin: 06/19/22 21:04 Dose: 2 mg Ondansetron HCl (Ondansetron 4 Mg/2 Ml Inj) 4 mg IV Q8H PRN PRN Reason: Nausea And Vomiting Oxycodone HCl (Oxycodone 5 Mg Tab) 5 mg PO Q6H PRN PRN Reason: Pain, Moderate (4-6) Pantoprazole Sodium (Pantoprazole 40 Mg Tab) 40 mg PO QDAY [facility] Polyethylene Glycol (Polyethylene Glycol 3350 17 Gm Powder) 17 gm PO DAILY PRN PRN Reason: Constipation Sevelamer Carbonate (Sevelamer Carbonate 800 Mg Tab) 800 mg PO AC [facility] Sodium Chloride (Sodium Chloride 0.9% 10 Ml Flush Syringe) 10 ml IV BID [facility] Last Admin: 06/20/22 00:02 Dose: 10 ml Sodium Chloride (Sodium Chloride 0.9% 10 Ml Flush Syringe) 10 ml IV PRN PRN PRN Reason: LINE FLUSH Physical Examination - Physical Exam Narrative exam: Physical Exam: Constitutional: Alert, cooperative. No acute distress Head, Ears, Nose: Normocephalic, atraumatic. External ears, nose normal Eyes: Conjunctivae/corneas clear. No icterus. No ptosis. Neck: Supple, no meningeal signs Cardiovascular: S1, S2 + Respiratory: Good air entry, clear to auscultation bilaterally GI: Soft, non-tender; bowel sounds normal. No peritoneal signs Musculoskeletal: Bilateral BKA. Right hand fingers with hyperpigmentation, tender to touch. Also cool to touch. Left hand dressing present Skin: No rash or abscess Hem/Lymphatic: No palpable cervical or supraclavicular nodes. No lymphangitis Psych: Mood ok. Affect normal Neurological: Awake, alert, oriented. No gross abnormality - Constitutional Vitals: Vital Signs Temp Pulse Resp BP Pulse Ox 97.6 F 77 16 132/70 98 06/19/22 08:04 06/19/22 23:16 06/19/22 23:16 06/19/22 23:16 06/20/22 08:48 Results - Labs CBC & Chem 7: 06/20/22 06:22 06/20/22 06:22 Labs: Abnormal lab results 06/19/22 06/19/22 06/20/22 Range/Units 07:18 13:14 06:22 WBC 3.9 L (4.5-11.0) K/mm3 RDW 18.3 H (13.2-15.2) % [place] % (Auto) 7.6 H (0.0-7.3) % Baso % (Auto) 2.2 H (0.0-1.8) % Lymph # (Auto) 0.9 L (1.2-5.4) K/mm3 PT 23.5 H (12.2-14.9) Sec. INR 1.79 H (0.87-1.13) APTT 44.9 H (24.2-36.6) Sec. Sodium (137-145) mmol/L Chloride (98-107) mmol/L BUN (9-20) mg/dL Creatinine (0.8-1.3) mg/dL POC Glucose 61 L (70-105) mg/dL Calcium (8.4-10.2) mg/dL ALT (7-56) units/L Alkaline Phosphatase (35-129) units/L Total Protein (6.3-8.2) g/dL Albumin (3.9-5) g/dL // Range/Units 06:22 WBC (4.5-11.0) K/mm3 RDW (13.2-15.2) % [place] % (Auto) (0.0-7.3) % Baso % (Auto) (0.0-1.8) % Lymph # (Auto) (1.2-5.4) K/mm3 PT (12.2-14.9) Sec. INR (0.87-1.13) APTT (24.2-36.6) Sec. Sodium 134 L (137-145) mmol/L Chloride 93.4 L (98-107) mmol/L BUN 28 H (9-20) mg/dL Creatinine 8.9 H (0.8-1.3) mg/dL POC Glucose (70-105) mg/dL Calcium 8.1 L (8.4-10.2) mg/dL ALT < 5 L (7-56) units/L Alkaline Phosphatase 136 H (35-129) units/L Total Protein 6.2 L (6.3-8.2) g/dL Albumin 2.6 L (3.9-5) g/dL Assessment and Plan Cultures: None A/P: 66-year-old male with diabetes, ESRD on HD, hypertension, GI bleed, CVA, peripheral vascular disease, prior bilateral lower extremity BKA, recent left hand index finger amputation came to the hospital with complaints of pain in his right hand fingers: #Right hand gangrenous, ischemic change: Seems to be chronic. #Severe peripheral vascular disease, prior bilateral BKA, recent left hand index finger amputation #ESRD on HD #Leucopenia: monitor. Recs: -Continue renally adjusted vancomycin and ceftriaxone -Vascular and orthopedics consult. Given his severe peripheral vascular disease, I doubt if the digits are salvageable -monitor CBC Alex Hernandez MD, FACP, [facility] ([facility] O: [phone] F: [phone] C: [phone]
[2022-06-20] MEDS: LANTHANUM CARBONATE 500 MG TAB PO SCH ×3 (08:56→19:45)
[2022-06-20] MEDS: SEVELAMER CARBONATE 800 MG TAB PO SCH ×3 (08:57→17:46)
[2022-06-20] MEDS ORDERED: AMPICILLIN/SULBACTA 3GM/100ML 3 GM/100 ML BAG IV SCH (09:00)
[2022-06-20] MEDS ORDERED: SODIUM CHLORIDE 0.9% 100 ML IV PRN (09:29)
--- NOTE | 2022-06-20 09:33 | Consultation ---
History of Present Illness - Reason for Consult Consult date: 06/20/22 end stage renal disease - History of Present Illness This is a 66 year-old man with ESRD who presents for tremors, hand pain. Patient usually dialyzes MWF at [facility]. Last HD 06/16. Denies any recent issues with HD, including dizziness, lightheadedness, cramping, chest pain on HD. Currently, patient denies any issues including dyspnea, edema, access issues, nausea, vomiting, headaches. Notes ongoing hand pain. - Past Medical History --Hypertension: Yes --Diabetes: Yes (PT AND BROTHER WITH DM) --Renal Disease: Yes past surgical history -- bilateral below-knee amputation, -- left hand index finger amputation, --left upper extremity AV fistula - Social History --Smoking Status: Never Smoker Medications and Allergies Allergies Allergy/AdvReac Type Severity Reaction Status Date / Time pollen extracts AdvReac Shortness Verified 04/06/16 19:37 of Breath Home Medications Medication Instructions Recorded Confirmed Last Taken Type Metoprolol Xl 25 mg PO DAILY 04/06/16 04/06/16 Unknown History Multivitamin/Iron/Folic Acid 1 PO DAILY 04/06/16 Unknown History Pantoprazole [Protonix TAB] 40 mg PO QDAY 04/06/16 04/06/16 Unknown History Sennosides [Senokot] 2 PO HS PRN 04/06/16 Unknown History polyethylene glycoL 3350 [Miralax 17 gm PO DAILY PRN 04/06/16 04/06/16 Unknown History 3350] Acetaminophen [Acetaminophen TAB] 325 mg PO Q4H PRN #1 tablet 04/14/16 Unknown Rx Aspirin 81 mg PO QDAY #1 tablet 04/14/16 Unknown Rx Cinacalcet [Sensipar] 90 mg PO DAILY #1 tablet 04/14/16 Unknown Rx Lanthanum Carbonate [Fosrenol] 500 mg PO TIDWM #1 tab.chew 04/14/16 Unknown Rx Sevelamer Carbonate [Renvela] 800 mg PO AC #1 tablet 04/14/16 Unknown Rx oxyCODONE [roxiCODONE] 10 mg PO Q4HR PRN #1 tablet 04/14/16 Unknown Rx Active Meds: Active Medications Acetaminophen (Acetaminophen 325 Mg Tab) 650 mg PO Q4H PRN PRN Reason: Pain MILD(1-3)/Fever >100.5/[place] Cinacalcet (Cinacalcet 30 Mg Tab) 90 mg PO DAILY [facility] Last Admin: 06/19/22 18:17 Dose: 90 mg Vancomycin HCl 1,500 mg/ (Sodium Chloride) 530 mls @ 333.333 mls/hr IV ONCE ONE Stop: 06/20/22 10:05 Ceftriaxone Sodium (Rocephin/Ns 1 Gm/50 Ml) 1 gm in 50 mls @ 100 mls/hr IV Q24HR [facility]; Protocol Sodium Chloride (Nacl 0.9%) 100 mls @ 999 mls/hr IV [place] PRN PRN Reason: Hypotension Insulin Human Lispro (Insulin Lispro 100 Unit/Ml) 0 unit SUB-Q ACHS [facility]; Protocol Lanthanum Carbonate (Lanthanum Carbonate 500 Mg Tab) 500 mg PO TIDWM [facility] Last Admin: 06/19/22 18:17 Dose: 500 mg Metoprolol Succinate (Metoprolol Succinate Xl 25 Mg Tab) 25 mg PO QDAY [facility] Last Admin: 06/19/22 18:17 Dose: 25 mg Morphine Sulfate (Morphine 2 Mg/1 Ml Inj) 2 mg IV Q4H PRN PRN Reason: Pain, Moderate (4-6) Last Admin: 06/19/22 21:04 Dose: 2 mg Ondansetron HCl (Ondansetron 4 Mg/2 Ml Inj) 4 mg IV Q8H PRN PRN Reason: Nausea And Vomiting Oxycodone HCl (Oxycodone 5 Mg Tab) 5 mg PO Q6H PRN PRN Reason: Pain, Moderate (4-6) Pantoprazole Sodium (Pantoprazole 40 Mg Tab) 40 mg PO QDAY [facility] Polyethylene Glycol (Polyethylene Glycol 3350 17 Gm Powder) 17 gm PO DAILY PRN PRN Reason: Constipation Sevelamer Carbonate (Sevelamer Carbonate 800 Mg Tab) 800 mg PO AC [facility] Sodium Chloride (Sodium Chloride 0.9% 10 Ml Flush Syringe) 10 ml IV BID [facility] Last Admin: 06/20/22 00:02 Dose: 10 ml Sodium Chloride (Sodium Chloride 0.9% 10 Ml Flush Syringe) 10 ml IV PRN PRN PRN Reason: LINE FLUSH Review of Systems All systems: negative (as per HPI) Exam - Vital Signs Vital signs: Vital Signs Temp Pulse Resp BP Pulse Ox 98.4 F 86 18 130/60 100 06/19/22 06:29 06/19/22 06:29 06/19/22 06:29 06/19/22 06:29 06/19/22 06:29 - Physical Exam Narrative exam: Constitutional: no acute distress Head: NC/AT Neck: supple Lungs: clear to auscultation CV: RRR, no M/R/G Abdomen: soft, non-tender, bowel sounds present Back: nontender Extremities: no edema, extremities wrapped, bilateral amputee noted Skin: intact Neuro: tremors noted Results - Lab Results 06/20/22 06:22 06/20/22 06:22 Most recent lab results Calcium 8.1 mg/dL (8.4-10.2) L 06/20/22 06:22 Assessment and Plan This is a 66 year old man who presents with gangrene # ESRD: plan for HD today, plan to continue // or prn while inpatient, transition back to F per outpatient schedule pending clinical course - daily labs - renally dose meds - avoid nephrotoxins - renal diet - verbal consent obtained for HD # Anemia: last hemoglobin 12.0, no immediate need for ESAs # HTN: UF as tolerated. BP stable currently # Secondary Hyperparathyroidism: continue home binders as needed, vitamin D analogs prn # Gangrene: vascular, ID following. # DM: per primary
--- NOTE | 2022-06-20 14:33 | Consultation ---
History of Present Illness - Reason for Consult Consult date: 06/20/22 Bilateral Upper Extremity Gangrene Requesting physician: MERRILL TORRES - History of Present Illness The patient is a 66-year-old male with a history of ESRD who is hemodialysis through a left brachial artery to axillary vein AVG. He recently underwent partial amputation of his left index finger, approximately 1 week ago at [facility], [place]. He states that approximately 2 weeks ago he began experiencing pain and discoloration of multiple fingers of his right hand. He was brought to the emergency with complaints of left arm tremors. He had no focal neuro deficits so a stroke workup was not warranted. He continues to complain of right hand pain but has no additional complaints. Past History Past Medical History: CAD, dialysis, ESRD, hypertension, hyperlipidemia Past Surgical History: Other (Bilateral BKA, Right 2nd finger partial amputation, Left arm AVG x 2 ) Social history: lives with family Family history: no significant family history Medications and Allergies Allergies Allergy/AdvReac Type Severity Reaction Status Date / Time pollen extracts AdvReac Shortness Verified 04/06/16 19:37 of Breath Home Medications Medication Instructions Recorded Confirmed Last Taken Type Metoprolol Xl 25 mg PO DAILY 04/06/16 04/06/16 Unknown History Multivitamin/Iron/Folic Acid 1 PO DAILY 04/06/16 Unknown History Pantoprazole [Protonix TAB] 40 mg PO QDAY 04/06/16 04/06/16 Unknown History Sennosides [Senokot] 2 PO HS PRN 04/06/16 Unknown History polyethylene glycoL 3350 [Miralax 17 gm PO DAILY PRN 04/06/16 04/06/16 Unknown History 3350] Acetaminophen [Acetaminophen TAB] 325 mg PO Q4H PRN #1 tablet 04/14/16 Unknown Rx Aspirin 81 mg PO QDAY #1 tablet 04/14/16 Unknown Rx Cinacalcet [Sensipar] 90 mg PO DAILY #1 tablet 04/14/16 Unknown Rx Lanthanum Carbonate [Fosrenol] 500 mg PO TIDWM #1 tab.chew 04/14/16 Unknown Rx Sevelamer Carbonate [Renvela] 800 mg PO AC #1 tablet 04/14/16 Unknown Rx oxyCODONE [roxiCODONE] 10 mg PO Q4HR PRN #1 tablet 04/14/16 Unknown Rx Active Meds: Active Medications Acetaminophen (Acetaminophen 325 Mg Tab) 650 mg PO Q4H PRN PRN Reason: Pain MILD(1-3)/Fever >100.5/[place] Cinacalcet (Cinacalcet 30 Mg Tab) 90 mg PO DAILY [facility] Last Admin: 06/19/22 18:17 Dose: 90 mg Ceftriaxone Sodium (Rocephin/Ns 1 Gm/50 Ml) 1 gm in 50 mls @ 100 mls/hr IV Q24HR [facility]; Protocol Sodium Chloride (Nacl 0.9%) 100 mls @ 999 mls/hr IV LOUIE PRN PRN Reason: Hypotension Insulin Human Lispro (Insulin Lispro 100 Unit/Ml) 0 unit SUB-Q ACHS [facility]; Protocol Lanthanum Carbonate (Lanthanum Carbonate 500 Mg Tab) 500 mg PO TIDWM [facility] Last Admin: 06/19/22 18:17 Dose: 500 mg Metoprolol Succinate (Metoprolol Succinate Xl 25 Mg Tab) 25 mg PO QDAY [facility] Last Admin: 06/19/22 18:17 Dose: 25 mg Morphine Sulfate (Morphine 2 Mg/1 Ml Inj) 2 mg IV Q4H PRN PRN Reason: Pain, Moderate (4-6) Last Admin: 06/19/22 21:04 Dose: 2 mg Ondansetron HCl (Ondansetron 4 Mg/2 Ml Inj) 4 mg IV Q8H PRN PRN Reason: Nausea And Vomiting Oxycodone HCl (Oxycodone 5 Mg Tab) 5 mg PO Q6H PRN PRN Reason: Pain, Moderate (4-6) Pantoprazole Sodium (Pantoprazole 40 Mg Tab) 40 mg PO QDAY [facility] Polyethylene Glycol (Polyethylene Glycol 3350 17 Gm Powder) 17 gm PO DAILY PRN PRN Reason: Constipation Sevelamer Carbonate (Sevelamer Carbonate 800 Mg Tab) 800 mg PO [facility] Sodium Chloride (Sodium Chloride 0.9% 10 Ml Flush Syringe) 10 ml IV BID [facility] Last Admin: 06/20/22 00:02 Dose: 10 ml Sodium Chloride (Sodium Chloride 0.9% 10 Ml Flush Syringe) 10 ml IV PRN PRN PRN Reason: LINE FLUSH Review of Systems All systems: negative Exam - Constitutional Vitals: Temp Pulse Resp BP Pulse Ox 97.6 F 70 18 118/58 92 06/20/22 10:13 06/20/22 13:00 06/20/22 10:13 06/20/22 13:00 06/20/22 10:13 General appearance: Present: no acute distress - Cardiovascular Rhythm: regular - Extremities Extremities: abnormal (left hand with 4" samina bandage, thrombosed left forearm arm AVG, left brachial to axillary vein AVG with palpable thrill) Extremity abnormal: pulses diminished (nonplapable radial pulses bialterally), other (Bilateral Leg with well healed BKA) - Abdominal Male genitourinary: Present: deferred - Rectal Rectal Exam: deferred Results - Labs CBC & Chem 7: 06/20/22 06:22 06/20/22 06:22 Labs: Abnormal lab results 06/20/22 06/20/22 Range/Units 06:22 06:22 WBC 3.9 L (4.5-11.0) K/mm3 RDW 18.3 H (13.2-15.2) % [place] % (Auto) 7.6 H (0.0-7.3) % Baso % (Auto) 2.2 H (0.0-1.8) % Lymph # (Auto) 0.9 L (1.2-5.4) K/mm3 Sodium 134 L (137-145) mmol/L Chloride 93.4 L (98-107) mmol/L BUN 28 H (9-20) mg/dL Creatinine 8.9 H (0.8-1.3) mg/dL Calcium 8.1 L (8.4-10.2) mg/dL ALT < 5 L (7-56) units/L Alkaline Phosphatase 136 H (35-129) units/L Total Protein 6.2 L (6.3-8.2) g/dL Albumin 2.6 L (3.9-5) g/dL Assessment and Plan The patient is a 66-year-old male with a history of ESRD who devleloped gangrene involving bilateral hands. He underwent partial amputation of his left 2nd finger. He has a left arm AVG that may be causing Steal-Syndrome. This does no however explain the gangrenous changes to his right hand. He is in need of an arterial duplex, to evaluate his flow. He requires an arterial duplex to evaluate the flow to his bilaterial hands. He may require vascular surgery intervention however tis will be determined by the findings of his ultrasound. He will likely follow up with his hand surgeon.. I explained the plan to the patient who expressed understand and agrees.
[2022-06-20] MEDS: MORPHINE 2 MG/1 ML INJ IV PRN (15:55)
[2022-06-20] MEDS: CINACALCET 30 MG TAB PO SCH (15:56)
[2022-06-20] MEDS: METOPROLOL SUCCINATE XL 25 MG TAB PO SCH (15:57)
[2022-06-20] MEDS: PANTOPRAZOLE 40 MG TAB PO SCH (15:58)
--- NOTE | 2022-06-20 16:41 | Vascular Lab Report ---
DUPLEX DOPPLER UPPER EXTREMITY ARTERIAL, BILATERAL INDICATION / CLINICAL INFORMATION: upper extremity ulcers. TECHNIQUE: Arterial duplex examination of both upper extremities performed using B-mode, color flow and spectral Doppler assessment. FINDINGS: RIGHT: Axillary: PSV 60 cm/sec. Triphasic waveform. Brachial: PSV 83 cm/sec. Triphasic waveform. Radial: PSV 39 cm/sec. Triphasic waveform. Ulnar: PSV 38 cm/sec. Triphasic waveform. LEFT: Axillary: PSV 94 cm/sec. Monophasic waveform. Brachial: PSV 231 cm/sec. Monophasic waveform. Radial: Occluded distally Ulnar: PSV 35 cm/sec. Monophasic waveform. IMPRESSION: 1. Significant left upper extremity peripheral arterial disease with occluded left radial artery. Doppler Waveform: - Triphasic is normal. - Biphasic is abnormal if clear transition from triphasic signal along vascular tree. - Monophasic is abnormal. Signer Name: Rohan Elmore MD Signed: 06/20/2022 4:36 PM Workstation Name: [email or web address]
--- NOTE | 2022-06-20 17:59 | Vascular Lab Report ---
VL VICKY EVALUATION INDICATION: History of ulcers of upper extremities. History of peripheral vascular disease. COMPARISON: None available. FINDINGS: The study is limited by patient motion throughout the exam. Ankle-brachial indices could not be obtai marita. Abnormal, blunted waveforms are seen throughout the digits bilaterally. IMPRESSION: Limited study demonstrating abnormal waveforms throughout the arteries of the bilateral fingers. Signer Name: Nelson Johnson MD Signed: 06/20/2022 5:55 PM Workstation Name: [id number]
[2022-06-20] MEDS: oxyCODONE 5 MG TAB PO PRN (19:39)
[2022-06-20] MEDS: cefTRIAXone/NS 1 GM/50 ML 1 GM/50 ML BAG IV SCH (20:00)
--- NOTE | 2022-06-21 06:24 | Progress Note ---
Assessment and Plan - Patient Problems (1) Gangrene Current Visit: No Status: Acute Plan to address problem: Patient has gangrene of both forearms and hands Vascular surgery consult Patient is thinking about hospice IV antibiotics initiated (2) End stage renal disease on dialysis Current Visit: Yes Status: Chronic Plan to address problem: Continue hemodialysis as per schedule Nephrology consulted (3) Hypertension Current Visit: Yes Status: Chronic Qualifiers: Hypertension type: primary hypertension Qualified Code(s): I10 - Essential (primary) hypertension Plan to address problem: Continue antihypertensives and adjust medications as necessary (4) T2DM (type 2 diabetes mellitus) Current Visit: Yes Status: Chronic Qualifiers: Diabetes mellitus mcc insulin use: unspecified 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 insulin use status Plan to address problem: Coverage and check A1c (5) Below knee amputation status Current Visit: No Status: Chronic Plan to address problem: Bilateral below-knee amputation Supportive care (6) Hyponatremia Current Visit: Yes Status: Acute Plan to address problem: Mild Should correct with increased ultrafiltration (7) Elevated troponin Current Visit: Yes Status: Chronic Plan to address problem: Troponin leak Repeat troponin level (8) DVT prophylaxis Current Visit: Yes Status: Acute Plan to address problem: On heparin and GI prophylaxis (9) Advance care planning Current Visit: Yes Status: Acute Plan to address problem: Disease education conducted, care plan discussed, patient diagnosis discussed then. Prognosis discussed. Patient acknowledges understanding of care plan. +30 minutes. Patient is thinking about hospice. Subjective Date of service: 06/20/22 Objective - Constitutional Vitals: Vital Signs - 12hr 06/20/22 06/20/22 21:45 23:00 Temperature 97.7 F Pulse Rate 64 Respiratory 16 Rate Blood Pressure 102/56 [Right] O2 Sat by Pulse 97 97 Oximetry General appearance: Present: no acute distress, well-nourished - EENT Eyes: PERRL, EOM intact ENT: hearing intact, clear oral mucosa Ears: bilateral: normal - Neck Neck: supple, normal ROM - Respiratory Respiratory effort: normal Respiratory: bilateral: CTA - Breasts Breasts: normal - Cardiovascular Rhythm: regular Heart Sounds: Present: S1 & S2. Absent: gallop, rub Extremities: pulses intact, No edema, normal color, Full ROM - Gastrointestinal General gastrointestinal: Present: soft, non-tender, non-distended, normal bowel sounds - Genitourinary Male genitourinary: normal - Integumentary Integumentary: clear, warm, dry - Musculoskeletal Musculoskeletal: 1, strength equal bilaterally - Neurologic Neurologic: moves all extremities - Psychiatric Psychiatric: memory intact, appropriate mood/affect, intact judgment & insight - Labs CBC & Chem 7: 06/20/22 06:22 06/20/22 06:22 Labs: Abnormal lab results 06/20/22 06/20/22 06/20/22 Range/Units 06:22 06:22 21:38 WBC 3.9 L (4.5-11.0) K/mm3 RDW 18.3 H (13.2-15.2) % [place] % (Auto) 7.6 H (0.0-7.3) % Baso % (Auto) 2.2 H (0.0-1.8) % Lymph # (Auto) 0.9 L (1.2-5.4) K/mm3 Sodium 134 L (137-145) mmol/L Chloride 93.4 L (98-107) mmol/L BUN 28 H (9-20) mg/dL Creatinine 8.9 H (0.8-1.3) mg/dL POC Glucose 110 H (70-105) mg/dL Calcium 8.1 L (8.4-10.2) mg/dL ALT < 5 L (7-56) units/L Alkaline Phosphatase 136 H (35-129) units/L Total Protein 6.2 L (6.3-8.2) g/dL Albumin 2.6 L (3.9-5) g/dL HEART Score - HEART Score Troponin: Troponin T 0.565 ng/mL (0.00-0.029) H* 06/19/22 07:18
[2022-06-21] MEDS: SEVELAMER CARBONATE 800 MG TAB PO SCH ×3 (07:30→17:05)
[2022-06-21] MEDS: INSULIN LISPRO 100 UNIT/ML SUB-Q SCH ×4 (07:40→21:30)
[2022-06-21] MEDS: LANTHANUM CARBONATE 500 MG TAB PO SCH ×3 (08:00→17:05)
--- NOTE | 2022-06-21 09:07 | Progress Note ---
Assessment and Plan This is a 66 year old man who presents with gangrene # ESRD: plan for HD today, plan to continue // or prn while inpatient, transition back to [facility] per outpatient schedule pending clinical course, no need for HD today per clinical assessment - daily labs - renally dose meds - avoid nephrotoxins - renal diet - verbal consent obtained for HD # Anemia: last hemoglobin 12.0, no immediate need for ESAs # HTN: UF as tolerated. BP stable currently # Secondary Hyperparathyroidism: continue home binders as needed, vitamin D analogs prn # Gangrene: vascular, ID following. # DM: per primary Subjective Date of service: 06/21/22 Interval history: Had HD yesterday, no issues noted. Resting in bed this AM Objective - Exam Narrative Exam: Constitutional: no acute distress Head: NC/AT Neck: supple Lungs: clear to auscultation CV: RRR, no M/R/G Abdomen: soft, non-tender, bowel sounds present Back: nontender Extremities: no edema, extremities wrapped, bilateral amputee noted Skin: intact Neuro: tremors noted - Vital Signs Vital signs: Vital Signs - 12hr 06/20/22 06/20/22 21:45 23:00 Temperature 97.7 F Pulse Rate 64 Respiratory 16 Rate Blood Pressure 102/56 [Right] O2 Sat by Pulse 97 97 Oximetry - Lab 06/20/22 06:22 06/20/22 06:22 Most recent lab results Calcium 8.1 mg/dL (8.4-10.2) L 06/20/22 06:22 Medications & Allergies - Medications Allergies/Adverse Reactions: Allergies pollen extracts Adverse Reaction (Verified 04/06/16 19:37) Shortness of Breath Home Medications: Home Medications Medication Instructions Recorded Confirmed Last Taken Type Metoprolol Xl 25 mg PO DAILY 04/06/16 06/21/22 Unknown History Multivitamin/Iron/Folic Acid 1 mg PO DAILY 04/06/16 06/21/22 Unknown History Pantoprazole [Protonix TAB] 40 mg PO QDAY 04/06/16 06/21/22 Unknown History Sennosides [Senokot] 2 mg PO HS PRN 04/06/16 06/21/22 Unknown History polyethylene glycoL 3350 [Miralax 17 gm PO DAILY PRN 04/06/16 06/21/22 Unknown History 3350] Acetaminophen [Acetaminophen TAB] 325 mg PO Q4H PRN #1 tablet 04/14/16 06/21/22 Unknown Rx Aspirin 81 mg PO QDAY #1 tablet 04/14/16 06/21/22 Unknown Rx Cinacalcet [Sensipar] 90 mg PO DAILY #1 tablet 04/14/16 06/21/22 Unknown Rx Lanthanum Carbonate [Fosrenol] 500 mg PO TIDWM #1 tab.chew 04/14/16 06/21/22 Unknown Rx Sevelamer Carbonate [Renvela] 800 mg PO AC #1 tablet 04/14/16 06/21/22 Unknown Rx oxyCODONE [roxiCODONE] 10 mg PO Q4HR PRN #1 tablet 04/14/16 06/21/22 Unknown Rx Active Medications: Generic Name Dose Route Start Last Admin Trade Name Freq PRN Reason Stop Dose Admin Acetaminophen 650 mg 06/19/22 17:02 Acetaminophen 325 Mg Tab PO Q4H PRN Pain MILD(1-3)/Fever >100.5/[place] Cinacalcet 90 mg 06/19/22 18:00 06/20/22 15:56 Cinacalcet 30 Mg Tab PO 90 mg DAILY MARIA ESTHER Administration Ceftriaxone Sodium 1 gm in 50 mls @ 100 mls/hr 06/20/22 10:00 06/20/22 20:00 Rocephin/Ns 1 Gm/50 Ml IV 100 mls/hr Q24HR MARIA ESTHER Administration Protocol Sodium Chloride 100 mls @ 999 mls/hr 06/20/22 09:29 Nacl 0.9% IV LOUIE PRN Hypotension Insulin Human Lispro 0 unit 06/20/22 07:30 06/21/22 07:40 Insulin Lispro 100 Unit/Ml SUB-Q Not Given ACHS MARIA ESTHER Protocol Lanthanum Carbonate 500 mg 06/19/22 18:00 06/20/22 19:45 Lanthanum Carbonate 500 Mg Tab PO 500 mg TIDWM MARIA ESTHER Administration Metoprolol Succinate 25 mg 06/19/22 18:00 06/20/22 15:57 Metoprolol Succinate Xl 25 Mg Tab PO 25 mg QDAY MARIA ESTHER Administration Morphine Sulfate 2 mg 06/19/22 17:02 06/20/22 15:55 Morphine 2 Mg/1 Ml Inj IV 2 mg Q4H PRN Administration Pain, Moderate (4-6) Ondansetron HCl 4 mg 06/19/22 17:02 Ondansetron 4 Mg/2 Ml Inj IV Q8H PRN Nausea And Vomiting Oxycodone HCl 5 mg 06/19/22 17:21 06/20/22 19:39 Oxycodone 5 Mg Tab PO 5 mg Q6H PRN Administration Pain, Moderate (4-6) Pantoprazole Sodium 40 mg 06/20/22 10:00 06/20/22 15:58 Pantoprazole 40 Mg Tab PO 40 mg QDAY MARIA ESTHER Administration Polyethylene Glycol 17 gm 06/19/22 17:00 Polyethylene Glycol 3350 17 Gm Powder PO DAILY PRN Constipation Sevelamer Carbonate 800 mg 06/20/22 07:30 06/20/22 17:46 Sevelamer Carbonate 800 Mg Tab PO 800 mg AC MARIA ESTHER Administration Sodium Chloride 10 ml 06/19/22 22:00 06/20/22 22:28 Sodium Chloride 0.9% 10 Ml Flush Syringe IV 10 ml BID MARIA ESTHER Administration Sodium Chloride 10 ml 06/19/22 17:02 Sodium Chloride 0.9% 10 Ml Flush Syringe IV PRN PRN LINE FLUSH
[2022-06-21] MEDS: CINACALCET 30 MG TAB PO SCH (09:41)
[2022-06-21] MEDS: cefTRIAXone/NS 1 GM/50 ML 1 GM/50 ML BAG IV SCH (09:41)
[2022-06-21] MEDS: METOPROLOL SUCCINATE XL 25 MG TAB PO SCH (09:42)
[2022-06-21] MEDS: PANTOPRAZOLE 40 MG TAB PO SCH (09:43)
--- NOTE | 2022-06-21 10:29 | Progress Note ---
Assessment and Plan Cultures: None A/P: 66-year-old male with diabetes, ESRD on HD, hypertension, GI bleed, CVA, per ipheral vascular disease, prior bilateral lower extremity BKA, recent left hand index finger amputation came to the hospital with complaints of pain in his right hand fingers: #Right hand gangrenous, ischemic change: Seems to be chronic. Given his severe peripheral vascular disease, I doubt the digits are salvageable. #Severe peripheral vascular disease, prior bilateral BKA, recent left hand index finger amputation: vascular following. #ESRD on HD #Leucopenia: monitor. Recs: -Continue renally adjusted vancomycin and ceftriaxone -monitor CBC Alex Hernandez MD, FACP, [facility] O: [phone] F: [phone] C: [phone] Subjective Date of service: 06/21/22 Interval history: No fever. Pain in hands present. Objective - Exam Narrative Exam: Physical Exam: Constitutional: Alert, cooperative. No acute distress Head, Ears, Nose: Normocephalic, atraumatic. External ears, nose normal Eyes: Conjunctivae/corneas clear. No icterus. No ptosis. Neck: Supple, no meningeal signs Cardiovascular: S1, S2 + Respiratory: Good air entry, clear to auscultation bilaterally GI: Soft, non-tender; bowel sounds normal. No peritoneal signs Musculoskeletal: Bilateral BKA. Right hand fingers with hyperpigmentation, tender to touch. Also cool to touch. Left hand dressing present Skin: No rash or abscess Hem/Lymphatic: No palpable cervical or supraclavicular nodes. No lymphangitis Psych: Mood ok. Affect normal Neurological: Awake, alert, oriented. No gross abnormality - Constitutional Vitals: Vital Signs Temp Pulse Resp BP Pulse Ox 97.7 F 64 16 102/56 97 06/20/22 21:45 06/20/22 21:45 06/20/22 21:45 06/20/22 21:45 06/20/22 23:00 Temperature -Last 24 Hours Temperature 97.7 F Temperature 97 F Temperature 98.9 F - Labs CBC & Chem 7: 06/20/22 06:22 06/20/22 06:22 Labs: Abnormal lab results 06/20/22 Range/Units 21:38 POC Glucose 110 H (70-105) mg/dL
--- NOTE | 2022-06-21 10:52 | Electrocardiograph Report ---
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
[2022-06-21] MEDS: MORPHINE 2 MG/1 ML INJ IV PRN ×2 (12:26→20:58)
--- NOTE | 2022-06-21 18:35 | Discharge Summary ---
Providers - Providers Date of Admission: 06/19/22 17:02 Date of discharge: 06/21/22 Attending physician: MERRILL TORRES 06/19/22 18:47 Consult to Physician [CONS] Routine Comment: Consulting Provider: KAREN LINDSAY Physician Instructions: Reason For Exam: ESRD 06/20/22 07:08 Consult to Physician [CONS] Routine Comment: Consulting Provider: YVONNE SCOTT Physician Instructions: Reason For Exam: Gangrene both hands 06/20/22 07:09 Consult to Physician [CONS] Routine Comment: Consulting Provider: MUNDO CUELLAR Physician Instructions: Reason For Exam: gangrene both hands,abx choice 06/20/22 19:34 Consult to Wound/ET Nurse [CONS] Urgent Reason For Exam: wound eval Primary care physician: ZAC NEELY Hospitalization Condition: Fair Disposition: 30 STILL A PATIENT - Discharge Diagnoses (1) Gangrene Status: Acute (2) End stage renal disease on dialysis Status: Chronic (3) Hypertension Status: Chronic Qualifiers: Hypertension type: primary hypertension Qualified Code(s): I10 - Essential (primary) hypertension (4) T2DM (type 2 diabetes mellitus) Status: Chronic Qualifiers: Diabetes mellitus alf insulin use: unspecified alf insulin use status (5) Below knee amputation status Status: Chronic (6) Hyponatremia Status: Acute (7) Elevated troponin Status: Chronic (8) DVT prophylaxis Status: Acute (9) Advance care planning Status: Acute Exam - Constitutional Vitals: Temp Pulse Resp BP Pulse Ox 97.4 F L 55 L 18 96/59 90 06/21/22 12:00 06/21/22 12:00 06/21/22 12:00 06/21/22 12:00 06/21/22 12:00 Plan Follow up with: ZAC NEELY MD [Primary Care Provider] - 3-5 Days
[2022-06-22] MEDS: MORPHINE 2 MG/1 ML INJ IV PRN (05:52)
[2022-06-22] MEDS: SEVELAMER CARBONATE 800 MG TAB PO SCH ×2 (08:28→12:15)
[2022-06-22] MEDS: LANTHANUM CARBONATE 500 MG TAB PO SCH ×2 (08:28→12:18)
--- NOTE | 2022-06-22 08:41 | Progress Note ---
Assessment and Plan Patient with a history of end-stage renal disease on hemodialysis. He presented with darkish discoloration and gangrenous changes to bilateral hands for several days prior to admission. He also was noted to have A. fib. Per patient, he is on Eliquis in the outpatient setting. Patient was counseled that he will need to continue to take his Eliquis. Additionally, the patient has undergone amputation of his left first finger at [facility]. Arterial duplex was ordered here which demonstrates normal arterial inflow on the right with monophasic arterial inflow on the left and occlusion of the left radial artery. Would question whether component of this is thromboembolic disease given the normal arterial flow to his right forearm with gangrenous changes to his right hand. Patient states that he has upcoming appointments with his [facility] physicians. He was counseled that he will need to follow-up sooner given decreased arterial inflow to his left forearm and hand which place additional digits and hand at risk for amputation. He will likely require some type of revascularization. Subjective Date of service: 06/22/22 Principal diagnosis: Bilateral upper extremity gangrenous changes to his hand Interval history: Patient with a history of end-stage renal disease on hemodialysis through left upper arm AV graft. He has bilateral below the knee amputations. Recent first left finger amputation performed at [facility]. At present, the patient simply states that he wants to go home and per nursing was planning on being discharged yesterday. Objective - Constitutional Vitals: Vital Signs - 12hr 06/21/22 06/21/22 06/22/22 22:00 23:24 08:16 Temperature 98 F Pulse Rate 77 Respiratory 16 Rate Blood Pressure 103/70 [Right] O2 Sat by Pulse 98 96 98 Oximetry General appearance: Present: no acute distress - EENT ENT: hearing intact - Neck Neck: normal ROM - Respiratory Respiratory effort: normal Extremities: abnormal (Right hand gangrenous discoloration, left hand with bandage, bilateral BKA) - Gastrointestinal General gastrointestinal: Present: deferred - Genitourinary Male genitourinary: deferred - Psychiatric Psychiatric: cooperative - Labs CBC & Chem 7: 06/20/22 06:22 06/20/22 06:22 Labs: Abnormal lab results 06/21/22 06/21/22 06/21/22 Range/Units 11:47 16:26 21:02 POC Glucose 129 H 120 H 141 H (70-105) mg/dL Medications & Allergies - Medications Allergies/Adverse Reactions: Allergies pollen extracts Adverse Reaction (Verified 04/06/16 19:37) Shortness of Breath Home Medications: Home Medications Medication Instructions Recorded Confirmed Last Taken Type Metoprolol Xl 25 mg PO DAILY 04/06/16 06/21/22 Unknown History Multivitamin/Iron/Folic Acid 1 mg PO DAILY 04/06/16 06/21/22 Unknown History Sennosides [Senokot] 2 mg PO HS PRN 04/06/16 06/21/22 Unknown History polyethylene glycoL 3350 [Miralax 17 gm PO DAILY PRN 04/06/16 06/21/22 Unknown History 3350] Acetaminophen [Acetaminophen TAB] 325 mg PO Q4H PRN #1 tablet 04/14/16 06/21/22 Unknown Rx Aspirin 81 mg PO QDAY #1 tablet 04/14/16 06/21/22 Unknown Rx Cinacalcet [Sensipar] 90 mg PO DAILY #1 tablet 04/14/16 06/21/22 Unknown Rx Lanthanum Carbonate [Fosrenol] 500 mg PO TIDWM #1 tab.chew 04/14/16 06/21/22 Unknown Rx Sevelamer Carbonate [Renvela] 800 mg PO AC #1 tablet 04/14/16 06/21/22 Unknown Rx Cinacalcet [Sensipar] 90 mg PO DAILY tablet 06/21/22 Unknown Rx Lanthanum Carbonate [Fosrenol] 500 mg PO TIDWM tab.chew 06/21/22 Unknown Rx Metoprolol Xl [Metoprolol 25 mg PO QDAY tablet 06/21/22 Unknown Rx SUCCINATE ER TAB] Pantoprazole [Protonix TAB] 40 mg PO QDAY tablet 06/21/22 Unknown Rx Sevelamer Carbonate [Renvela] 800 mg PO AC tablet 06/21/22 Unknown Rx oxyCODONE [roxiCODONE] 5 mg PO Q6H PRN #20 tablet 06/21/22 Unknown Rx polyethylene glycoL 3350 [Miralax 17 gm PO DAILY PRN powd.pack 06/21/22 Unknown Rx 3350] Active Medications: Generic Name Dose Route Start Last Admin Trade Name Freq PRN Reason Stop Dose Admin Acetaminophen 650 mg 06/19/22 17:02 Acetaminophen 325 Mg Tab PO Q4H PRN Pain MILD(1-3)/Fever >100.5/ALMONTE Cinacalcet 90 mg 06/19/22 18:00 06/21/22 09:41 Cinacalcet 30 Mg Tab PO 90 mg DAILY MARIA ESTHER Administration Ceftriaxone Sodium 1 gm in 50 mls @ 100 mls/hr 06/20/22 10:00 06/21/22 21:30 Rocephin/Ns 1 Gm/50 Ml IV Infused Q24HR MARIA ESTHER Infusion Protocol Sodium Chloride 100 mls @ 999 mls/hr 06/20/22 09:29 Nacl 0.9% IV LOUIE PRN Hypotension Insulin Human Lispro 0 unit 06/20/22 07:30 06/21/22 21:30 Insulin Lispro 100 Unit/Ml SUB-Q Not Given ACHS [facility] Protocol Lanthanum Carbonate 500 mg 06/19/22 18:00 06/22/22 08:28 Lanthanum Carbonate 500 Mg Tab PO 500 mg TIDWM MARIA ESTHER Administration Metoprolol Succinate 25 mg 06/19/22 18:00 06/21/22 09:42 Metoprolol Succinate Xl 25 Mg Tab PO 25 mg QDAY MARIA ESTHER Administration Morphine Sulfate 2 mg 06/19/22 17:02 06/22/22 05:52 Morphine 2 Mg/1 Ml Inj IV 2 mg Q4H PRN Administration Pain, Moderate (4-6) Ondansetron HCl 4 mg 06/19/22 17:02 Ondansetron 4 Mg/2 Ml Inj IV Q8H PRN Nausea And Vomiting Oxycodone HCl 5 mg 06/19/22 17:21 06/20/22 19:39 Oxycodone 5 Mg Tab PO 5 mg Q6H PRN Administration Pain, Moderate (4-6) Pantoprazole Sodium 40 mg 06/20/22 10:00 06/21/22 09:43 Pantoprazole 40 Mg Tab PO 40 mg QDAY MARIA ESTHER Administration Polyethylene Glycol 17 gm 06/19/22 17:00 Polyethylene Glycol 3350 17 Gm Powder PO DAILY PRN Constipation Sevelamer Carbonate 800 mg 06/20/22 07:30 06/22/22 08:28 Sevelamer Carbonate 800 Mg Tab PO 800 mg AC MARIA ESTHER Administration Sodium Chloride 10 ml 06/19/22 22:00 06/21/22 21:05 Sodium Chloride 0.9% 10 Ml Flush Syringe IV 10 ml BID MARIA ESTHER Administration Sodium Chloride 10 ml 06/19/22 17:02 Sodium Chloride 0.9% 10 Ml Flush Syringe IV PRN PRN LINE FLUSH HEART Score - HEART Score Troponin: Troponin T 0.565 ng/mL (0.00-0.029) H* 06/19/22 07:18
[2022-06-22] MEDS: INSULIN LISPRO 100 UNIT/ML SUB-Q SCH ×2 (08:48→12:18)
--- NOTE | 2022-06-22 09:08 | Progress Note ---
Assessment and Plan This is a 66 year old man who presents with gangrene # ESRD: plan for HD today, has been on HD // while inpatient, transition back to F per outpatient schedule on discharge (ok to discharge after HD today) - daily labs - renally dose meds - avoid nephrotoxins - renal diet - verbal consent obtained for HD # Anemia: last hemoglobin 12.0, no immediate need for ESAs # HTN: UF as tolerated. BP stable currently # Secondary Hyperparathyroidism: continue home binders as needed, vitamin D analogs prn # Gangrene: vascular, ID following. # DM: per primary Subjective Date of service: 06/22/22 Principal diagnosis: Bilateral upper extremity gangrenous changes to his hand Interval history: No new issues noted this AM, patient wants to go home Objective - Exam Narrative Exam: Constitutional: no acute distress Head: NC/AT Neck: supple Lungs: clear to auscultation CV: RRR, no M/R/G Abdomen: soft, non-tender, bowel sounds present Back: nontender Extremities: no edema, extremities wrapped, bilateral amputee noted Skin: intact Neuro: tremors noted - Vital Signs Vital signs: Vital Signs - 12hr 06/21/22 06/21/22 06/22/22 22:00 23:24 08:16 Temperature 98 F Pulse Rate 77 Respiratory 16 Rate Blood Pressure 103/70 [Right] O2 Sat by Pulse 98 96 98 Oximetry - Lab 06/20/22 06:22 06/20/22 06:22 Most recent lab results Calcium 8.1 mg/dL (8.4-10.2) L 06/20/22 06:22 Medications & Allergies - Medications Allergies/Adverse Reactions: Allergies pollen extracts Adverse Reaction (Verified 04/06/16 19:37) Shortness of Breath Home Medications: Home Medications Medication Instructions Recorded Confirmed Last Taken Type Metoprolol Xl 25 mg PO DAILY 04/06/16 06/21/22 Unknown History Multivitamin/Iron/Folic Acid 1 mg PO DAILY 04/06/16 06/21/22 Unknown History Sennosides [Senokot] 2 mg PO HS PRN 04/06/16 06/21/22 Unknown History polyethylene glycoL 3350 [Miralax 17 gm PO DAILY PRN 04/06/16 06/21/22 Unknown History 3350] Acetaminophen [Acetaminophen TAB] 325 mg PO Q4H PRN #1 tablet 04/14/16 06/21/22 Unknown Rx Aspirin 81 mg PO QDAY #1 tablet 04/14/16 06/21/22 Unknown Rx Cinacalcet [Sensipar] 90 mg PO DAILY #1 tablet 04/14/16 06/21/22 Unknown Rx Lanthanum Carbonate [Fosrenol] 500 mg PO TIDWM #1 tab.chew 04/14/16 06/21/22 Unknown Rx Sevelamer Carbonate [Renvela] 800 mg PO AC #1 tablet 04/14/16 06/21/22 Unknown Rx Cinacalcet [Sensipar] 90 mg PO DAILY tablet 06/21/22 Unknown Rx Lanthanum Carbonate [Fosrenol] 500 mg PO TIDWM tab.chew 06/21/22 Unknown Rx Metoprolol Xl [Metoprolol 25 mg PO QDAY tablet 06/21/22 Unknown Rx SUCCINATE ER TAB] Pantoprazole [Protonix TAB] 40 mg PO QDAY tablet 06/21/22 Unknown Rx Sevelamer Carbonate [Renvela] 800 mg PO AC tablet 06/21/22 Unknown Rx oxyCODONE [roxiCODONE] 5 mg PO Q6H PRN #20 tablet 06/21/22 Unknown Rx polyethylene glycoL 3350 [Miralax 17 gm PO DAILY PRN powd.pack 06/21/22 Unknown Rx 3350] Active Medications: Generic Name Dose Route Start Last Admin Trade Name Freq PRN Reason Stop Dose Admin Acetaminophen 650 mg 06/19/22 17:02 Acetaminophen 325 Mg Tab PO Q4H PRN Pain MILD(1-3)/Fever >100.5/ALMONTE Cinacalcet 90 mg 06/19/22 18:00 06/21/22 09:41 Cinacalcet 30 Mg Tab PO 90 mg DAILY MARIA ESTHER Administration Ceftriaxone Sodium 1 gm in 50 mls @ 100 mls/hr 06/20/22 10:00 06/21/22 21:30 Rocephin/Ns 1 Gm/50 Ml IV Infused Q24HR MARIA ESTHER Infusion Protocol Sodium Chloride 100 mls @ 999 mls/hr 06/20/22 09:29 Nacl 0.9% IV LOUIE PRN Hypotension Insulin Human Lispro 0 unit 06/20/22 07:30 06/22/22 08:48 Insulin Lispro 100 Unit/Ml SUB-Q Not Given ACHS MARIA ESTHER Protocol Lanthanum Carbonate 500 mg 06/19/22 18:00 06/22/22 08:28 Lanthanum Carbonate 500 Mg Tab PO 500 mg TIDWM MARIA ESTHER Administration Metoprolol Succinate 25 mg 06/19/22 18:00 06/21/22 09:42 Metoprolol Succinate Xl 25 Mg Tab PO 25 mg QDAY MARIA ESTHER Administration Morphine Sulfate 2 mg 06/19/22 17:02 06/22/22 05:52 Morphine 2 Mg/1 Ml Inj IV 2 mg Q4H PRN Administration Pain, Moderate (4-6) Ondansetron HCl 4 mg 06/19/22 17:02 Ondansetron 4 Mg/2 Ml Inj IV Q8H PRN Nausea And Vomiting Oxycodone HCl 5 mg 06/19/22 17:21 06/20/22 19:39 Oxycodone 5 Mg Tab PO 5 mg Q6H PRN Administration Pain, Moderate (4-6) Pantoprazole Sodium 40 mg 06/20/22 10:00 06/21/22 09:43 Pantoprazole 40 Mg Tab PO 40 mg QDAY MARIA ESTHER Administration Polyethylene Glycol 17 gm 06/19/22 17:00 Polyethylene Glycol 3350 17 Gm Powder PO DAILY PRN Constipation Sevelamer Carbonate 800 mg 06/20/22 07:30 06/22/22 08:28 Sevelamer Carbonate 800 Mg Tab PO 800 mg AC MARIA ESTHER Administration Sodium Chloride 10 ml 06/19/22 22:00 06/21/22 21:05 Sodium Chloride 0.9% 10 Ml Flush Syringe IV 10 ml BID MARIA ESTHER Administration Sodium Chloride 10 ml 06/19/22 17:02 Sodium Chloride 0.9% 10 Ml Flush Syringe IV PRN PRN LINE FLUSH
[2022-06-22] MEDS: CINACALCET 30 MG TAB PO SCH (09:46)
[2022-06-22] MEDS: PANTOPRAZOLE 40 MG TAB PO SCH (09:47)
[2022-06-22] MEDS: METOPROLOL SUCCINATE XL 25 MG TAB PO SCH (09:47)
[2022-06-22] MEDS: cefTRIAXone/NS 1 GM/50 ML 1 GM/50 ML BAG IV SCH (09:47)
[2022-06-22 09:54] VITALS: BP 95/62
--- NOTE | 2022-06-22 10:49 | Progress Note ---
Assessment and Plan Cultures: None A/P: 66-year-old male with diabetes, ESRD on HD, hypertension, GI bleed, CVA, peripheral vascular disease, prior bilateral lower extremity BKA, recent left hand index finger amputation came to the hospital with complaints of pain in his right hand fingers: #Right hand gangrenous, ischemic change: Seems to be chronic. Given his severe peripheral vascular disease, I doubt the digits are salvageable. #Severe peripheral vascular disease, prior bilateral BKA, recent left hand index finger amputation: vascular following. #ESRD on HD #Leucopenia: monitor. Recs: -noted plans for discharge with outpt follow up with his physicians at [facility]. Etiology is severe vascular disease, no sepsis, no evidence of wet gangrene or purulence, will d/c IV abx. Alex Hernandez MD, FACP, [facility] ([facility]) O: [phone] F: [phone] C: [phone] Subjective Date of service: 06/22/22 Principal diagnosis: Bilateral upper extremity gangrenous changes to his hand Interval history: No fever. Pain in hands + Objective - Exam Narrative Exam: Physical Exam: Constitutional: Alert, cooperative. No acute distress Head, Ears, Nose: Normocephalic, atraumatic. External ears, nose normal Eyes: Conjunctivae/corneas clear. No icterus. No ptosis. Neck: Supple, no meningeal signs Cardiovascular: S1, S2 + Respiratory: Good air entry, clear to auscultation bilaterally GI: Soft, non-tender; bowel sounds normal. No peritoneal signs Musculoskeletal: Bilateral BKA. Right hand fingers with hyperpigmentation, tender to touch. Also cool to touch. Left hand dressing present Skin: No rash or abscess Hem/Lymphatic: No palpable cervical or supraclavicular nodes. No lymphangitis Psych: Mood ok. Affect normal Neurological: Awake, alert, oriented. No gross abnormality - Constitutional Vitals: Vital Signs Temp Pulse Resp BP Pulse Ox 98 F 66 16 95/62 98 06/21/22 23:24 06/22/22 09:47 06/21/22 23:24 06/22/22 09:47 06/22/22 08:16 Temperature -Last 24 Hours Temperature 98 F Temperature 97.8 F Temperature 97 F Temperature 97.4 F - Labs CBC & Chem 7: 06/20/22 06:22 06/20/22 06:22 Labs: Abnormal lab results 06/21/22 06/21/22 06/21/22 Range/Units 11:47 16:26 21:02 POC Glucose 129 H 120 H 141 H (70-105) mg/dL 06/22/22 Range/Units 08:35 POC Glucose 116 H (70-105) mg/dL
[2022-06-22] MEDS: oxyCODONE 5 MG TAB PO PRN (12:15)
== END 2022-06-22 13:30 | disposition home or self-care (01) | DRG 299 ==
LOC: ED 06:27 → 3A 17:02
PROVIDERS: ADMIT Internal Medicine; ATTEND Internal Medicine
PROC: 5A1D70Z Performance of Urinary Filtration, Intermittent, Less than 6 Hours Per Day (ICD-10-PCS; principal; 2022-06-20)
DX: E11.52 Type 2 diabetes mellitus with diabetic peripheral angiopathy with gangrene (principal); N18.6 End stage renal disease; I96 Gangrene, not elsewhere classified; E87.1 Hypo-osmolality and hyponatremia; N25.81 Secondary hyperparathyroidism of renal origin; I12.0 Hypertensive chronic kidney disease with stage 5 chronic kidney disease or end stage renal disease; E11.22 Type 2 diabetes mellitus with diabetic chronic kidney disease; Z99.2 Dependence on renal dialysis; D64.9 Anemia, unspecified; R77.8 Other specified abnormalities of plasma proteins; G40.909 Epilepsy, unspecified, not intractable, without status epilepticus; Z89.512 Acquired absence of left leg below knee; Z89.511 Acquired absence of right leg below knee; Z89.022 Acquired absence of left finger(s); Z83.3 Family history of diabetes mellitus; Z86.73 Personal history of transient ischemic attack (TIA), and cerebral infarction without residual deficits; Z79.4 Long term (current) use of insulin
CPT/HCPCS: 36415; 70450; 80053; 80061; 80074; 80202; 82550; 82553; 82962; 84484; 85025; 85610; 85670; 85730; 93005; 93922; 93930; G0378; J0696; J2270; J3370; J7040